=== PATIENT | male | born 1975 | race Caucasian/White ===

== ENCOUNTER 2018-06-29 18:14 | Emergency (ER) | payer MEDICAID ==
[~2018-06-29] VITALS: Ht 180.3 cm; Wt 113.6 kg
[2018-06-29 18:26] VITALS: Ht 180.3 cm; Wt 113.6 kg
[2018-06-29] MEDS ORDERED: LISINOPRIL10 MG PO (18:38)
[2018-06-29] MEDS ORDERED: GLUCOPHAGE500 MG PO (18:38)
[2018-06-29] MEDS ORDERED: OMEPRAZOLE40 MG PO (18:39)
[2018-06-29] MEDS ORDERED: ZOLOFT50 MG PO (18:40)
[2018-06-29] MEDS ORDERED: TRAZODONE HCL50 MG PO (18:40)
[2018-06-29 19:49] LABS: BASOPHILS 0.5 % (0-2); HEMATOCRIT 45.9 % (42.0-54.0); HEMOGLOBIN 16.1 g/dL (13.5-17.5); IMMATURE GRANULOCYTES 0.2 % (0-5); LYMPHOCYTES 43.3 % (15-50); MCH 32.5 pg (26.0-34.0); MCHC 35.1 g/dL (31.0-37.0); MCV 92.7 fL (80.0-100.0); MEAN PLATELET VOLUME 9.6 fL (7.4-10.4); MONOCYTES 7.8 % (2-11); NEUTROPHILS 42.2 % (40-80); PLATELET COUNT 173 10x3/uL (130-400); RBC 4.95 10x6/uL (4.20-6.10); RDW 12.4 % (11.5-14.5); WBC 5.6 10x3/uL (4.8-10.8)
[2018-06-29 20:05] LABS: ALBUMIN 3.9 g/dL (3.4-5.0); ALKALINE PHOSPHATASE 88 U/L (46-116); ALT (SGPT) 59 U/L (10-68); BILIRUBIN - TOTAL 0.31 mg/dL (0.2-1.3); CALC OSMOLALITY 290 mosm/kg (275-300); CALCIUM 8.2 mg/dL (8.5-10.1); CARBON DIOXIDE 26.6 mmol/L (21.0-32.0); CHLORIDE - SERUM 107 mmol/L (98-107); CREATININE - SERUM 0.8 mg/dL (0.6-1.3); GLUCOSE 156 mg/dL (74-106); POTASSIUM - SERUM 4.2 mmol/L (3.5-5.1); PROTEIN - SERUM 7.9 g/dL (6.4-8.2); SODIUM 146 mmol/L (136-145); UREA NITROGEN 5 mg/dL (7-18); eGFR NON AFRICAN AMERICAN > 90 mL/min (90-120)
[2018-06-29 20:14] LABS: CKMB 0.9 U/L (0.0-3.6); CREATINE KINASE 110 UL (21-232)
[2018-06-29 20:31] LABS: TROPONIN-I < 0.017 ng/mL (0.000-0.060)
[2018-06-29 23:04] VITALS: BP 126/78
== END 2018-06-29 23:04 | disposition home or self-care (01) ==
LOC: EDBD 18:14 → D.ER 18:14
PROVIDERS: Emergency Medicine
DX: R55 Syncope and collapse (principal); E11.9 Type 2 diabetes mellitus without complications; I10 Essential (primary) hypertension